=== PATIENT | female | born 1980 | race African-American/Black ===

== ENCOUNTER 2017-11-08 07:19 | Emergency (ER) | payer MEDICARE ==
[~2017-11-08] VITALS: Ht 152.4 cm; Wt 55.0 kg
[2017-11-08 08:28] LABS: HEMATOCRIT. 42.9 % (36.0-48.0); HEMOGLOBIN. 14.4 g/dL (12.0-16.0); MEAN CORPUSCULAR HEMOGLOBIN 31.5 pg (28.0-32.0); MEAN CORPUSCULAR VOLUME 94.2 fL (81.0-99.0); PLATELET 285 x1000/uL (130-400); RED BLOOD CELL COUNT 4.55 mill/uL (4.2-5.4); RED CELL DISTRIBUTION WIDTH 13.2 % (11.6-14.6)
[2017-11-08 08:33] LABS: CHLORIDE 102 mEq/L (98-107)
[2017-11-08 08:37] LABS: ETHANOL BLOOD < 10 mg/dL
[2017-11-08 09:36] LABS: PLATELET ESTIMATE NORMAL
[2017-11-08 11:30] LABS: *BARBITURATES SCREEN URINE NEGATIVE (NEGATIVE); *BENZODIAZEPINES SCREEN URINE NEGATIVE (NEGATIVE); *COCAINE SCREEN URINE NEGATIVE (NEGATIVE)
[2017-11-08 11:31] LABS: *AMPHETAMINES SCREEN URINE NEGATIVE (NEGATIVE); METHADONE URINE SCREEN NEGATIVE (NEGATIVE); OPIATES URINE SCREEN NEGATIVE (NEGATIVE); PHENCYCLIDINE URINE SCREEN NEGATIVE (NEGATIVE)
[2017-11-08 11:43] LABS: CANNABINOID URINE SCREEN PRESUMTIVE POSITIVE (NEGATIVE)
[2017-11-08 17:29] VITALS: BP 123/80
== END 2017-11-08 17:32 | disposition home or self-care (01) ==
LOC: ER 07:51
DX: R45.851 Suicidal ideations (principal); F32.9 Major depressive disorder, single episode, unspecified; E86.0 Dehydration; F12.10 Cannabis abuse, uncomplicated; R56.9 Unspecified convulsions; F17.200 Nicotine dependence, unspecified, uncomplicated; Z88.8 Allergy status to other drugs, medicaments and biological substances; Z88.1 Allergy status to other antibiotic agents; Z71.6 Tobacco abuse counseling
CPT/HCPCS: 36415; 80048; 80305; 81025; 85007; 85027; 99284; 99406; G0482

== ENCOUNTER 2017-11-16 07:41 | Emergency (ER) | payer MEDICARE, OTHER ==
[~2017-11-16] VITALS: Ht 149.9 cm; Wt 49.0 kg
[2017-11-16 09:33] LABS: BASOPHILS % 0.7 % (0.0-2.0); EOSINOPHILS % 0.3 % (0.0-5.0); HEMATOCRIT. 35.7 % (36.0-48.0); HEMOGLOBIN. 12.1 g/dL (12.0-16.0); LYMPHOCYTES % 37.5 % (20.0-50.0); MEAN CORPUSCULAR HEMOGLOBIN 31.9 pg (28.0-32.0); MEAN CORPUSCULAR VOLUME 94.1 fL (81.0-99.0); MEAN PLATELET VOLUME 7.1 fl (7.4-10.4); MONOCYTES % 7.7 % (2.0-8.0); NEUTROPHILS % 53.8 % (40.0-76.0); PLATELET 230 x1000/uL (130-400); RED CELL DISTRIBUTION WIDTH 12.9 % (11.6-14.6)
[2017-11-16 09:37] LABS: CHLORIDE 109 mEq/L (98-107)
[2017-11-16 09:41] LABS: ETHANOL BLOOD < 10 mg/dL
[2017-11-16 09:42] LABS: HCG SCREEN NEGATIVE
[2017-11-16 09:45] LABS: CLARITY URINE CLEAR (CLEAR); COLOR URINE YELLOW (YELLOW); KETONES URINE NEGATIVE (NEGATIVE); LEUKOCYTE ESTERASE URINE 1+ (NEGATIVE); NITRITE URINE POSITIVE (NEGATIVE); OCCULT BLOOD URINE NEGATIVE (NEGATIVE); PROTEIN URINE NEGATIVE (NEGATIVE); SPECIFIC GRAVITY URINE 1.022 (1.005-1.030)
[2017-11-16 10:26] LABS: *AMPHETAMINES SCREEN URINE NEGATIVE (NEGATIVE); *BARBITURATES SCREEN URINE NEGATIVE (NEGATIVE); *BENZODIAZEPINES SCREEN URINE NEGATIVE (NEGATIVE); *COCAINE SCREEN URINE NEGATIVE (NEGATIVE); METHADONE URINE SCREEN NEGATIVE (NEGATIVE); OPIATES URINE SCREEN NEGATIVE (NEGATIVE)
[2017-11-16 10:27] LABS: PHENCYCLIDINE URINE SCREEN NEGATIVE (NEGATIVE)
[2017-11-16 10:32] LABS: CANNABINOID URINE SCREEN PRESUMTIVE POSITIVE (NEGATIVE)
[2017-11-16] MEDS ORDERED: CEFTRIAXONE SODIUM 1 G/VIAL IM ONE (12:30)
[2017-11-16 13:25] VITALS: BP 102/60
== END 2017-11-16 14:17 | disposition home or self-care (01) ==
LOC: ER 07:41
DX: F32.9 Major depressive disorder, single episode, unspecified (principal); R45.851 Suicidal ideations; N39.0 Urinary tract infection, site not specified; G40.909 Epilepsy, unspecified, not intractable, without status epilepticus; F17.200 Nicotine dependence, unspecified, uncomplicated; F12.10 Cannabis abuse, uncomplicated; G43.909 Migraine, unspecified, not intractable, without status migrainosus; Z88.8 Allergy status to other drugs, medicaments and biological substances
CPT/HCPCS: 36415; 80053; 80305; 80307; 80329; 81003; 84703; 85025; 96372; 99284; G0482; J0696

== ENCOUNTER 2022-02-15 09:30 | Inpatient (IN) | payer BC, MEDICAID ==
[~2022-02-15] VITALS: Ht 152.4 cm; Wt 82.1 kg
[2022-02-15] MEDS ORDERED: IOHEXOL-350 100 ML BOTTLE ONE (10:08)
[2022-02-15 10:23] LABS: BASOPHILS % 0.6 % (0.0-2.0); EOSINOPHILS % 1.2 % (0.0-5.0); HEMATOCRIT. 33.2 % (36.0-48.0); HEMOGLOBIN. 11.1 g/dL (12.0-16.0); LYMPHOCYTES % 28.9 % (20.0-50.0); MEAN CORPUSCULAR HEMOGLOBIN 32.6 pg (28.0-32.0); MEAN CORPUSCULAR VOLUME 97.5 fL (81.0-99.0); MEAN PLATELET VOLUME 6.4 fl (7.4-10.4); MONOCYTES % 6.5 % (2.0-8.0); NEUTROPHILS % 62.8 % (40.0-76.0); PLATELET 359 x1000/uL (130-400)
[2022-02-15 10:43] LABS: CHLORIDE 106 mEq/L (98-107)
[2022-02-15 10:53] LABS: ETHANOL BLOOD < 10 mg/dL
[2022-02-15 11:15] LABS: CLARITY URINE CLEAR (CLEAR); COLOR URINE YELLOW (YELLOW); KETONES URINE NEGATIVE (NEGATIVE); LEUKOCYTE ESTERASE URINE NEGATIVE (NEGATIVE); NITRITE URINE NEGATIVE (NEGATIVE); OCCULT BLOOD URINE 1+ (NEGATIVE); PROTEIN URINE NEGATIVE (NEGATIVE); SPECIFIC GRAVITY URINE 1.054 (1.005-1.030); UROBILINOGEN URINE 0.2 E.U./dL (0.2-1.0)
[2022-02-15 11:59] LABS: *AMPHETAMINES SCREEN URINE NEGATIVE (NEGATIVE); *BARBITURATES SCREEN URINE NEGATIVE (NEGATIVE); *BENZODIAZEPINES SCREEN URINE NEGATIVE (NEGATIVE); *COCAINE SCREEN URINE NEGATIVE (NEGATIVE); METHADONE URINE SCREEN NEGATIVE (NEGATIVE); PHENCYCLIDINE URINE SCREEN NEGATIVE (NEGATIVE)
[2022-02-15 12:37] LABS: CANNABINOID URINE SCREEN PRESUMTIVE POSITIVE (NEGATIVE); OPIATES URINE SCREEN PRESUMTIVE POSITIVE (NEGATIVE)
[2022-02-15] MEDS ORDERED: ONDANSETRON HCL 4MG/2ML INJ IV PRN (14:15)
[2022-02-15] MEDS ORDERED: ACETAMINOPHEN 325MG TABLET PO PRN (14:15)
[2022-02-15] MEDS ORDERED: MAGNESIUM/ALUMINUM HYDROXIDE/SIMETHICONE 30ML UDC PO PRN (14:15)
[2022-02-15] MEDS ORDERED: CLONIDINE 0.1MG TABLET PO PRN (14:15)
[2022-02-15] MEDS: ACETAMINOPHEN 325MG TABLET PO PRN (19:06)
[2022-02-15 20:15] VITALS: BP 128/77
[2022-02-15 20:30] VITALS: BP 122/77
[2022-02-15] MEDS: SODIUM CHLORIDE 0.9% INJ 3ML FLUSH IVF SCH (21:59)
[2022-02-15] MEDS: OXCARBAZEPINE 300MG TABLET PO SCH (22:38)
[2022-02-15] MEDS ORDERED: RISP0.2514 MT (23:15)
[2022-02-15] MEDS ORDERED: FLUO20CA39 PO (23:15)
[2022-02-16] VITALS: BP 104/66
[2022-02-16 04:00] VITALS: BP 119/78
[2022-02-16] MEDS ORDERED: GABA-290 PO ×2 (04:52→05:17)
[2022-02-16] MEDS ORDERED: RISP1TAB97 MT (04:52)
[2022-02-16] MEDS ORDERED: FAMO-135 MT (04:56)
[2022-02-16] MEDS ORDERED: AMIT100T2 MT (04:56)
[2022-02-16] MEDS ORDERED: OXCA300T31 PO ×2 (04:56→05:14)
[2022-02-16] MEDS ORDERED: [UNRECOGNIZED DRUG - CODE] (04:59)
[2022-02-16] MEDS ORDERED: MIRT-89 PO ×2 (05:03→05:17)
[2022-02-16] MEDS ORDERED: ONDA8TAB13 PO (05:03)
[2022-02-16] MEDS ORDERED: OMEP20CA14 PO (05:10)
[2022-02-16] MEDS ORDERED: FLUO20CA39 PO (05:15)
[2022-02-16] MEDS: SODIUM CHLORIDE 0.9% INJ 3ML FLUSH IVF SCH (05:18)
[2022-02-16] MEDS: ACETAMINOPHEN 325MG TABLET PO PRN (05:45)
[2022-02-16 05:53] LABS: BASOPHILS % 0.8 % (0.0-2.0); EOSINOPHILS % 1.7 % (0.0-5.0); HEMATOCRIT. 34.6 % (36.0-48.0); HEMOGLOBIN. 11.6 g/dL (12.0-16.0); LYMPHOCYTES % 44.2 % (20.0-50.0); MEAN CORPUSCULAR HEMOGLOBIN 32.6 pg (28.0-32.0); MEAN CORPUSCULAR VOLUME 96.9 fL (81.0-99.0); MEAN PLATELET VOLUME 6.4 fl (7.4-10.4); MONOCYTES % 7.5 % (2.0-8.0); NEUTROPHILS % 45.8 % (40.0-76.0); PLATELET 368 x1000/uL (130-400); RED BLOOD CELL COUNT 3.57 mill/uL (4.2-5.4); RED CELL DISTRIBUTION WIDTH 14.8 % (11.6-14.6)
[2022-02-16] MEDS ORDERED: GABA800T97 PO (06:01)
[2022-02-16 06:18] LABS: CHLORIDE 110 mEq/L (98-107)
[2022-02-16 06:31] LABS: PHOSPHORUS 3.7 mg/dL (2.5-4.9)
[2022-02-16] MEDS: OXCARBAZEPINE 300MG TABLET PO SCH (08:29)
[2022-02-16 12:00] VITALS: BP 126/82
[2022-02-16 14:18] VITALS: BP 126/82
== END 2022-02-16 15:00 | disposition home or self-care (01) | DRG 66 ==
LOC: ER 10:12 → MICUSO 12:32 → EDBEDREQTM 12:36 → EDBEDREQSVC 12:36 → EDBEDREQ 12:36 → EDBEDREQSVC 13:56 → ENRESERV 19:36 → 6WST 20:54
PROVIDERS: ADMIT Internal Medicine; ATTEND Internal Medicine
DX: I63.9 Cerebral infarction, unspecified (principal); G43.909 Migraine, unspecified, not intractable, without status migrainosus; G40.909 Epilepsy, unspecified, not intractable, without status epilepticus; G50.0 Trigeminal neuralgia; F32.A Depression, unspecified; Z82.49 Family history of ischemic heart disease and other diseases of the circulatory system; W10.9XXA Fall (on) (from) unspecified stairs and steps, initial encounter; Y93.89 Activity, other specified; Y92.89 Other specified places as the place of occurrence of the external cause; Y99.8 Other external cause status; Z86.73 Personal history of transient ischemic attack (TIA), and cerebral infarction without residual deficits; Z88.8 Allergy status to other drugs, medicaments and biological substances
CPT/HCPCS: 36415; 70496; 70498; 71045; 80048; 80053; 80305; 80320; 81003; 83735; 84100; 84484; 85025; 93005; 99285; J2405; Q9967; G0480